=== PATIENT | male | born 1970 | race Caucasian/White ===

== ENCOUNTER 2018-06-15 07:58 | Inpatient (IN) | payer OTHER ==
[2018-06-15] MEDS: SOD CHLORIDE 0.9% 100 ML, TRANEXAMIC ACID 3,000 MG IRR (06:30)
[2018-06-15] MEDS: CEFAZOLIN 2 GM/50 ML (PMX) 50 ML IVPB (06:30)
[2018-06-15] MEDS: TRANEXAMIC ACID 1,000 MG in DEXTROSE 5% 100 ML IVPB (06:30)
[2018-06-15] MEDS ORDERED: NEOSTIGMINE 3 MG/3 ML SYRINGE (08:22)
[2018-06-15] MEDS ORDERED: PROPOFOL 20 ML (08:22)
[2018-06-15] MEDS ORDERED: ROCURONIUM 50 MG INJ (08:22)
[2018-06-15] MEDS ORDERED: CEFAZOLIN 1 GM INJ (08:22)
[2018-06-15] MEDS ORDERED: GLYCOPYRROLATE 0.4 MG INJ (08:22)
[2018-06-15] MEDS ORDERED: FENTAnyl 50 MCG/ML VIAL (08:24)
[2018-06-15] MEDS ORDERED: MIDAZOLAM 1 MG/ML 2 ML INJ (08:24)
[2018-06-15] MEDS ORDERED: ONDANSETRON 4 MG INJ (08:24)
[2018-06-15] MEDS: DEXAMETHASONE 1 MG TAB PO (08:57)
[2018-06-15] MEDS: GABAPENTIN 300 MG CAP PO ×2 (08:58→21:27)
[2018-06-15] MEDS ORDERED: BUPIVACAINE 0.5% (SDV) 30 ML, morphine SULFATE (PF) 8 MG, EPINEPHrine 0.3 MG, KETOROLAC... IRR (09:00)
[2018-06-15] MEDS ORDERED: SUGAMMADEX SODIUM 200 MG/2 ML VIAL IV (09:01)
[2018-06-15] MEDS ORDERED: CA CHLORIDE (GM) 10% 10 ML INJ (09:28)
[2018-06-15] MEDS: POLYMYXIN/BACITRACIN 1L IRRIG (09:28)
[2018-06-15] MEDS ORDERED: THROMBIN 5000 UNIT VIAL (09:28)
[2018-06-15] MEDS ORDERED: morphine SULFATE/PF (10 MG/10 ML) INJ (09:38)
[2018-06-15] MEDS ORDERED: PHENYLephrine 10 MG INJ (10:18)
[2018-06-15] MEDS ORDERED: MIDAZOLAM 1 MG/ML 2 ML INJ IV (10:30)
[2018-06-15] MEDS ORDERED: LABETALOL HCL 20MG INJ IV (10:30)
[2018-06-15] MEDS ORDERED: TRIMETHOBENZAMIDE 100 MG/ML VIAL IM ×2 (10:30)
[2018-06-15] MEDS ORDERED: hydrALAzine 20 MG INJ IV (10:30)
[2018-06-15] MEDS ORDERED: ONDANSETRON 4 MG INJ IV ×2 (10:30→11:30)
[2018-06-15] MEDS ORDERED: EPHEDrine SULFATE 50 MG/5 ML SYG IV (10:30)
[2018-06-15] MEDS ORDERED: FENTAnyl 50 MCG/ML VIAL IV ×3 (10:30)
[2018-06-15] MEDS ORDERED: ZOLPIDEM 5 MG TAB PO ×2 (10:30→21:00)
[2018-06-15] MEDS ORDERED: NALBUPHINE HCL (10 MG/1 ML) INJ IV (10:30)
[2018-06-15] MEDS ORDERED: IPRATROPIUM (NEB) 0.5 MG/2.5 ML AMP HHN (10:30)
[2018-06-15] MEDS ORDERED: HYDROmorphONE 1 MG/5 ML IV SYRINGE IV ×3 (10:30)
[2018-06-15] MEDS ORDERED: HYDROmorphONE 0.5 MG/0.5 ML SYG IV ×2 (10:30)
[2018-06-15] MEDS ORDERED: ALBUTEROL 0.083% (NEB) 2.5 MG/3 ML AMP HHN (10:30)
[2018-06-15] MEDS ORDERED: NALOXONE (0.4 MG/ML) INJ IV (10:30)
[2018-06-15] MEDS ORDERED: DIPHENHYDRAMINE 50 MG INJ IV ×3 (10:30→11:30)
[2018-06-15] MEDS ORDERED: DEXAMETHASONE 4 MG/ML 5 ML INJ (10:31)
[2018-06-15] MEDS ORDERED: oxyCODONE 5 MG TAB PO ×3 (11:30)
[2018-06-15] MEDS ORDERED: HYDROmorphONE 1 MG/ML SYG IV (11:30)
[2018-06-15] MEDS ORDERED: KETOROLAC 15 MG INJ IV (11:30)
[2018-06-15] MEDS ORDERED: NACL 0.9% 3 ML SYG IV (11:30)
[2018-06-15] MEDS ORDERED: CEFAZOLIN 1 GM/50 ML (PMX) 50 ML IVPB (11:48)
[2018-06-15] MEDS: CEFAZOLIN 1 GM/50 ML (PMX) 50 ML IVPB ×2 (11:56→18:43)
[2018-06-15] MEDS ORDERED: ACETAMINOPHEN 500 MG TAB (11:58)
[2018-06-15] MEDS: TRANEXAMIC ACID 1,000 MG in SOD CHLORIDE 0.9% 100 ML IVPB (12:12)
[2018-06-15] MEDS: ACETAMINOPHEN 500 MG TAB PO ×2 (12:15→17:51)
[2018-06-15] MEDS: MEPERIDINE 25 MG INJ IV (12:23)
[2018-06-15] MEDS: ONDANSETRON 4 MG INJ IV (12:23)
[2018-06-15] MEDS: DEXAMETHASONE 2 MG TAB PO ×3 (12:28→23:31)
[2018-06-15 12:32] LABS: ADD MAN DIFF? NO
[2018-06-15 12:35] LABS: BASOPHILS % 0.2 % (0.0-2.0); EOSINOPHILS # 0.1 10^3/ul (0.0-0.5); EOSINOPHILS % 0.5 % (0.0-7.0); HEMATOCRIT 38.3 % (42.0-52.0); HEMOGLOBIN 12.8 g/dl (14.0-18.0); LYMPHOCYTES # 1.7 10^3/ul (0.8-2.9); LYMPHOCYTES % 17.1 % (15.0-51.0); MEAN CORPUSCULAR HEMOGLOBIN 29.1 pg (29.0-33.0); MEAN CORPUSCULAR HGB CONC 33.4 g/dl (32.0-37.0); MEAN PLATELET VOLUME 9.2 fl (7.4-10.4); MONOCYTE # 0.3 10^3/ul (0.3-0.9); MONOCYTES % 3.2 % (0.0-11.0); NEUTROPHIL # 7.5 10^3/ul (1.6-7.5); NEUTROPHILS % 78.3 % (39.0-77.0); PLATELET COUNT 188 10^3/UL (140-415); RED CELL DISTRIBUTION WIDTH 12.2 % (11.5-14.5)
[2018-06-15 12:35] LABS: WHITE BLOOD COUNT 9.6 10^3/ul (4.8-10.8)
[2018-06-15] MEDS ORDERED: traMADol 50 MG TAB PO (13:30)
[2018-06-15] MEDS: LACTATED RINGER'S 1,000 ML IV (13:43)
[2018-06-15] MEDS: SENNA/DOCUSATE NA (8.6MG/50MG) TAB PO (21:26)
[2018-06-15] MEDS: ATORVASTATIN 20 MG TAB PO (21:26)
[2018-06-15] MEDS: LEVOTHYROXINE 137 MCG TAB PO (21:27)
[2018-06-15] MEDS: MONTELUKAST 10 MG TAB PO (21:41)
[2018-06-16] MEDS: KETOROLAC 30 MG INJ IV (00:35)
[2018-06-16] MEDS: CEFAZOLIN 1 GM/50 ML (PMX) 50 ML IVPB (03:47)
[2018-06-16 05:59] LABS: ADD MAN DIFF? NO
[2018-06-16 06:10] LABS: WHITE BLOOD COUNT 12.4 10^3/ul (4.8-10.8)
[2018-06-16 06:10] LABS: BASOPHILS % 0.1 % (0.0-2.0); HEMATOCRIT 33.1 % (42.0-52.0); HEMOGLOBIN 11.1 g/dl (14.0-18.0); LYMPHOCYTES # 0.8 10^3/ul (0.8-2.9); LYMPHOCYTES % 6.5 % (15.0-51.0); MEAN CORPUSCULAR HEMOGLOBIN 29.2 pg (29.0-33.0); MEAN CORPUSCULAR HGB CONC 33.5 g/dl (32.0-37.0); MEAN CORPUSCULAR VOLUME 87.1 fl (82.0-101.0); MEAN PLATELET VOLUME 9.7 fl (7.4-10.4); MONOCYTE # 0.8 10^3/ul (0.3-0.9); MONOCYTES % 6.6 % (0.0-11.0); NEUTROPHIL # 10.7 10^3/ul (1.6-7.5); NEUTROPHILS % 86.3 % (39.0-77.0); PLATELET COUNT 176 10^3/UL (140-415); RED CELL DISTRIBUTION WIDTH 12.3 % (11.5-14.5)
[2018-06-16] MEDS: DEXAMETHASONE 2 MG TAB PO (06:11)
[2018-06-16] MEDS: ACETAMINOPHEN 500 MG TAB PO ×3 (06:11→12:55)
[2018-06-16] MEDS ORDERED: KETOROLAC 15 MG INJ IV (09:41)
[2018-06-16] MEDS: DULOXETINE 30 MG CAP DR PO (09:57)
[2018-06-16] MEDS: BUPROPION (XL) 150 MG TAB PO (09:57)
[2018-06-16] MEDS: SENNA/DOCUSATE NA (8.6MG/50MG) TAB PO (09:58)
[2018-06-16] MEDS: ASPIRIN (EC) 325 MG TAB PO (09:58)
[2018-06-16] MEDS ORDERED: ZOLPIDEM 5 MG TAB PO (21:00)
== END 2018-06-16 15:10 | disposition home or self-care (01) | DRG 470 ==
LOC: REC 07:58 → MS1 12:46
PROVIDERS: Orthopaedic Surgery
PROC: 0SR904A Replacement of Right Hip Joint with Ceramic on Polyethylene Synthetic Substitute, Uncemented, Open Approach (ICD-10-PCS; principal; 2018-06-15 09:30)
DX: M16.11 Unilateral primary osteoarthritis, right hip (principal); E03.9 Hypothyroidism, unspecified; J45.909 Unspecified asthma, uncomplicated; E78.5 Hyperlipidemia, unspecified; F41.9 Anxiety disorder, unspecified; F32.9 Major depressive disorder, single episode, unspecified
CPT/HCPCS: 72170; 73530; 85025; 86999; 87086; 88305; 88311; 97116; 97161